=== PATIENT | male | born 1965 | race Two or more races ===

== ENCOUNTER 2019-08-27 15:41 | Inpatient (IN) | payer OTHER ==
[~2019-08-27] VITALS: Ht 180.3 cm; Wt 114.8 kg
[2019-11-04] MEDS ORDERED: COZAAR100 MG PO (11:17)
[2019-11-04] MEDS ORDERED: MICROZIDE12.5 MG PO (11:17)
[2019-11-04] MEDS ORDERED: TOPROL XL50 M1 PO (11:18)
[2019-11-04] MEDS ORDERED: LOPID PO (11:18)
[2019-11-07] MEDS ORDERED: GEMFIBROZIL600 MG PO (08:19)
[2019-11-07] MEDS ORDERED: HYDROCHLOROTHIA25 MG PO (08:20)
== END 2019-11-09 14:12 | disposition home or self-care (01) | DRG 708 ==
LOC: O/R 11-07 05:25 → SURH 11-07 05:25 → SURG 11-07 07:00 → SURH 11-07 13:17
PROVIDERS: ADMIT Urology
PROC: 07TC4ZZ Resection of Pelvis Lymphatic, Percutaneous Endoscopic Approach (ICD-10-PCS; 2019-11-07)
PROC: 0VT04ZZ Resection of Prostate, Percutaneous Endoscopic Approach (ICD-10-PCS; principal; 2019-11-07 07:00)
DX: C61 Malignant neoplasm of prostate (principal)